=== PATIENT | male | born 1995 | race Caucasian/White ===

== ENCOUNTER 2017-11-02 14:19 | Emergency (ER) | payer SELFPAY ==
[~2017-11-02] VITALS: Ht 172.7 cm; Wt 87.0 kg
[2017-11-02] MEDS ORDERED: IBUPROFEN 600MG TABLET PO ONE (19:00)
[2017-11-02 19:39] VITALS: BP 134/88
== END 2017-11-02 19:14 | disposition home or self-care (01) ==
LOC: ER 16:01
DX: S52.591A Other fractures of lower end of right radius, initial encounter for closed fracture (principal); Y93.B2 Activity, push-ups, pull-ups, sit-ups; Y92.89 Other specified places as the place of occurrence of the external cause
CPT/HCPCS: 29125; 73110; 73130; 99284; A4565